=== PATIENT | male | born 1990 | race Hispanic/Latino ===

== ENCOUNTER → 2020-05-25 | Outpatient (CLI) | payer OTHER ==
[~2020-05-25] MED LIST: COVID-19 VACC, MRNA(MODERNA)/PF 100 MCG/0.5 ML VIAL IM ONE
== END | DRG 951 ==
LOC: VACCPMC 12:43
DX: Z23 Encounter for immunization (principal); Z20.822 Contact with and (suspected) exposure to COVID-19
CPT/HCPCS: 91301

== ENCOUNTER → 2020-06-22 | Outpatient (CLI) | payer OTHER | END | disposition home or self-care (01) | LOC: VACCPMC 13:20 | DX: Z23 Encounter for immunization (principal); Z20.822 Contact with and (suspected) exposure to COVID-19 | CPT/HCPCS: 91301 ==